=== PATIENT | male | born 1950 | race Caucasian/White ===

== ENCOUNTER 2024-01-19 02:16 | Emergency (ER) | payer MEDICARE ==
[2024-01-19] MEDS ORDERED: Ondansetron PF 4 MG/2 ML Vial ONE (02:43)
[2024-01-19] MEDS ORDERED: Ketorolac Tromethamine 30 MG (1 mL) VIAL ONE (02:50)
[2024-01-19 03:01] LABS: #Basophils 0.04 10x3/uL (0.0-0.2); #Eosinophils 0.21 10x3/uL (0.0-0.5); #Monocytes 0.79 10x3/uL (0.0-1.1); #Neutrophils 3.31 10x3/uL (1.5-8.4); %Basophils 0.7 % (0.0-2.0); %Eosinophils 3.4 % (0.0-6.0); %Lymphocytes 29.1 % (18.0-47.0); %Monocytes 12.8 % (0.0-10.0); %Neutrophils 53.8 % (40.0-75.0); Hematocrit 40.4 % (38.8-50.0); Hemoglobin 13.5 g/dL (13.5-17.5); Mean Corpuscular HGB CONC 33.4 g/dL (32.0-36.0); Mean Corpuscular Hemoglobin 29.9 pg (27.0-33.0); Mean Corpuscular Volume 89.4 fL (81.2-95.1); Mean Platelet Volume 10.3 fL (7.4-10.4); Platelet Count 205 10x3/uL (150-450); RBC Distribution Width 13.2 % (11.5-14.5); Red Blood Cell (RBC) Count 4.52 10x6/uL (4.32-5.72); White Blood Cell (WBC) Count 6.2 10x3/uL (3.5-10.5)
[2024-01-19] MEDS ORDERED: Morphine 4 MG/ML VIAL ONE (03:26)
[2024-01-19 03:54] LABS: Bilirubin Neg (Negative); Blood, Urine 10 (Negative); Glucose, Urine (Dipstick) Normal (Negative); Ketone, Urine Negative (Negative); Leukocyte 500 (Negative); Nitrite Negative (Negative); Protein, Urine (Dipstick) 15 mg/dl (Neg-Trace); Specific Gravity, Urine 1.015 (1.005-1.030); Urobilinogen Normal mg/dL (Less than 2)
[2024-01-19 05:00] LABS: ALT (SGPT) 17 U/L (8-55); AST (SGOT) 24 U/L (5-34); Albumin 3.4 g/dL (3.4-4.8); Alkaline Phosphatase 59 U/L (40-110); Anion Gap 14 mmol/L (10-20); BUN (Urea Nitrogen) 21 mg/dL (8.4-25.7); Bilirubin, Total 0.3 mg/dL (0.2-1.2); Calc. Creatinine Clearance 0 mL/min (70-130); Calcium 8.9 mg/dL (7.8-10.44); Carbon Dioxide 25 mmol/L (23-31); Chloride 105 mmol/L (98-107); Estimated GFR 67; Globulin 2.4 g/dL (2.4-3.5); Glucose 114 mg/dL (83-110); Potassium 3.8 mmol/L (3.5-5.1); Protein, Total 5.8 g/dL (5.8-8.1); Sodium 140 mmol/L (136-145)
[2024-01-19 05:01] LABS: Clarity Slightly Cloudy (Clear)
[2024-01-19 05:08] LABS: Lipase 26 U/L (8-78); Magnesium 1.7 mg/dL (1.6-2.6)
[2024-01-19 05:37] LABS: CAUTI Indications for Culture Pelvic or flank pain; RBC/HPF 0-3 HPF (0-3); Squamous Epithelial None Seen HPF (0-3)
[2024-01-19 05:38] LABS: Bacteria/HPF Rare-Few HPF (None Seen)
[2024-01-19 05:39] LABS: Urine Culture Reflex Yes Yes
== END 2024-01-19 06:25 | disposition home or self-care (01) ==
LOC: CSHERS 02:16
DX: N13.2 Hydronephrosis with renal and ureteral calculous obstruction (principal)
CPT/HCPCS: 74176; 80053; 81001; 83690; 83735; 85025; 87086; 96374; 96375; 99284; J1885; J2272; J2405; 36415